=== PATIENT | female | born 1995 | race African-American/Black ===

== ENCOUNTER 2017-10-07 21:25 | Emergency (ER) | payer BC, OTHER ==
[2017-10-07 21:32] VITALS: BMI 38.4
[2017-10-07] MEDS ORDERED: TORADOL 30 MG VIAL IVP ONE (21:59)
[2017-10-07] MEDS ORDERED: NS 1000 ML 1,000 ML IV ONE (21:59)
--- NOTE | 2017-10-07 22:01 | DR.GENAD ---
HPI - PCP Primary Care Physician: APARNA Calderon HPI Comment HPI Comment: GETTING WORSE. - Complaint/Symptoms Chief Complaint Doctors Comments: FEVER, CHILLS BACK AND FLANK PAIN TIMES 2 DAYS Chief Complaint:: BACK HURTS , SHAKES HEAD HURTING Self Treatment fo Chief Complaint: 3 TYLENOL 500 1600 - Nurses notes reviewed Nurses Notes Review: Yes - Source History Provided: Patient - Mode of Arrival Mode of Arrival: Ambulatory - Timing Onset of Chief Complaint: 10/04/17 Came on: Suddenly - Duration Duration: Constant Duration: Days - Severity Severity: Moderate PMH - PMH Past Medical History: No Past Surgical History: No - Family History History of Family Medical Conditions: Yes Family Medical History: Diabetes Mellitus, Cancer, [place], Coronary Artery Disease, Hypertension - Social History Does patient currently use any type of tobacco product: No Have you used tobacco products in the last 12 months: No Type of Tobacco Use: None Does any household member use tobacco: No Alcohol Use: None Do you use any recreational Drugs:: No Lives With: Family Lives Where: Home - infectious screening In the last 2 months have you had wt loss of >10#?: NO Have you had fever, night sweats or hemotysis?: No Have you traveled outside the country in the last 6 months?: No Isolation: Standard ROS - Review of Systems Constitutional: Chills, Fever, Weakness, Fatigue Eyes: No Symptoms Reported. negative: Eye Pain, Discharge ENTM: No Symptoms Reported. negative: Ear Pain, Nose Discharge, Nose Congestion , Throat Pain Respiratoy: No Symptoms Reported Cardiovascular: No Symptoms Reported Gastrointestinal/Abdominal: Abdominal Pain Genitourinary: No Symptoms Reported, Other (FLANK PAIN BILATERAL) Neurological: Weakness Musculoskeletal: Back Pain, Muscle Pain, Other (FLANK PAIN) Integumentary: No Symptoms Reported Hematologic/Lymphatic: No Symptoms Reported Endocrine: No Symptoms Reported All Other Systems: Reviewed and Negative PE - Vital Signs Vitals: Temperature 103.6 F Pulse Rate [Left Brachial] 100 Pulse Rate 127 Respiratory Rate 18 Blood Pressure [Right Arm] 136/87 Blood Pressure [Left Arm] 101/56 Blood Pressure 131/71 O2 Sat by Pulse Oximetry 100 - General Limitations: No Limitations General Appearance: Alert - Head Head Exam: Normal Inspection - Eyes Eye exam: Normal Appearance - ENT ENT Exam: Normal External Ear Exam External Ear Exam: Normal External Inspection TM/Canal Exam: Bilateral Normal Nose Exam: Normal Nose Exam Mouth Exam: Normal Inspection Throat Exam: Normal Inspection - Neck Neck Exam: Normal Inspection - Chest Chest Inspection: Symmetric Chest Wall Rise - Respiratory Respiratory Exam: Normal Lung Sounds Bilat Respiratory Exam: Bilateral Clear to Auscultation - Cardiovascular Cardiovascular Exam: Regular Rate, Normal Rhythm, Normal Heart Sounds - Abdominal Exam Abdominal Exam: Normal Bowel Sounds, Soft, Tenderness Abdominal Tenderness: RLQ, LLQ, Suprapubic - Extremities Extremities Exam: Normal Inspection - Back Back Exam: (R) CVA Tenderness, (L) CVA Tenderness - Neurologic Neurological Exam: Alert, Oriented X3 - Psychiatric Psychiatric Exam: Normal Affect, Normal Mood - Skin Skin Exam: Normal Color MDM - Additional Information Additional Information Obtained From: Family - Differential Diagnosis Differential Diagnosis: FLANK PAIN, BACK PAIN, KIDNEY STONE, UTI Course - Treatment Treatment: SEE ORDERS. IV NS AND IV ROCEPHIN IN ED. - Reevaluation 1st: Improved - Education/Counseling Education/Counseling: Patient, Family, Education Educated On: Treatment, Diagnosis, Needs for Follow Up ROR - Labs Reviewed Laboratory Results Reviewed?: Yes Result Diagrams: 10/07/17 22:15 10/07/17 22:15 Laboratory: WBC 10.4 X10^3/uL (3.6-10.0) H 10/07/17 22:15 RBC 4.08 X10^6/uL (3.5-5.4) 10/07/17 22:15 Hgb 12.9 g/dL (12.0-16.0) 10/07/17 22:15 Hct 36.6 % (36.0-47.0) 10/07/17 22:15 MCV 89.8 fL (80.0-100.0) 10/07/17 22:15 MCH 31.6 pg (27.0-34.0) 10/07/17 22:15 MCHC 35.2 g/dL (33.0-35.0) H 10/07/17 22:15 RDW 12.9 % (11.6-16.5) 10/07/17 22:15 Plt Count 228 X10^3/uL (150.0-450.0) 10/07/17 22:15 MPV 8.4 fL (7.4-11.0) 10/07/17 22:15 Neut % (Auto) 84.2 % (42.0-75.0) H 10/07/17 22:15 Lymph % (Auto) 11.5 % (21.0-51.0) L 10/07/17 22:15 [place] % (Auto) 3.8 % (0.0-13.0) 10/07/17 22:15 Eos % (Auto) 0.1 % (0.9-2.9) L 10/07/17 22:15 Baso % (Auto) 0.4 % (0.2-1.0) 10/07/17 22:15 Neut # (Auto) 8.8 x10^3/uL (2.2-4.8) H 10/07/17 22:15 Lymph # (Auto) 1.2 X10^3/uL (1.3-2.9) L 10/07/17 22:15 [place] # (Auto) 0.4 x10^3/uL (0.3-0.8) 10/07/17 22:15 Eos # (Auto) 0.0 x10^3/uL (0.0-0.2) 10/07/17 22:15 Baso # (Auto) 0.0 X10^3/uL (0.0-0.1) 10/07/17 22:15 Absolute Nucleated RBC 0.0 /100WBC 10/07/17 22:15 Sodium 140 mmol/L (136-145) 10/07/17 22:15 Corrected Sodium TNP 10/07/17 22:15 Potassium 3.5 mmol/L (3.5-5.1) 10/07/17 22:15 Chloride 105 mmol/L (98-107) 10/07/17 22:15 Carbon Dioxide 27.3 mmol/L (21-32) 10/07/17 22:15 BUN 13 mg/dL (7-18) 10/07/17 22:15 Creatinine 1.05 mg/dL (0.55-1.02) H 10/07/17 22:15 Est GFR (MDRD) Af Amer > 60 (>60) 10/07/17 22:15 Est GFR (MDRD) Non-Af > 60 (>60) 10/07/17 22:15 Glucose 110 mg/dL (65-99) H 10/07/17 22:15 Lactic Acid 0.9 mmol/L (0.4-2.0) 10/07/17 22:15 Calcium 8.3 mg/dL (8.5-10.1) L 10/07/17 22:15 Corrected Calcium TNP 10/07/17 22:15 Total Bilirubin 2.20 mg/dL (0.2-1.0) H 10/07/17 22:15 AST 14 Units/L (15-37) L 10/07/17 22:15 ALT 17 Units/L (12-78) 10/07/17 22:15 Alkaline Phosphatase 111 Units/L (46-116) 10/07/17 22:15 Total Protein 8.1 g/dL (6.4-8.2) 10/07/17 22:15 Albumin 3.6 g/dL (3.4-5.0) 10/07/17 22:15 Globulin 4.5 g/dL (2.5-4.5) 10/07/17 22:15 Albumin/Globulin Ratio 0.8 Ratio (1.1-2.1) L 10/07/17 22:15 Specimen Type Clean catch urine 10/07/17 22:14 Urine Color [place] (YELLOW) 10/07/17 22:14 Urine Appearance Cloudy (CLEAR) 10/07/17 22:14 Urine pH 6.5 (5.0 - 8.0) 10/07/17 22:14 Ur Specific [place] 1.020 (1.000-1.030) 10/07/17 22:14 Urine Protein 3+ (NEGATIVE) 10/07/17 22:14 Urine Glucose (UA) Negative (NEGATIVE) 10/07/17 22:14 Urine Ketones Negative (NEGATIVE) 10/07/17 22:14 Urine Occult Blood 2+ (NEGATIVE) 10/07/17 22:14 Urine Nitrite Positive (NEGATIVE) 10/07/17 22:14 Urine Bilirubin Negative (NEGATIVE) 10/07/17 22:14 Urine Urobilinogen 2+ (NORMAL) 10/07/17 22:14 Ur Leukocyte Esterase 3+ (NEGATIVE) 10/07/17 22:14 Urine RBC 12-15 /HPF (NONE SEEN) 10/07/17 22:14 Urine WBC Tntc /HPF (NONE SEEN) 10/07/17 22:14 Ur Squamous Epith Cells Rare /HPF (NEGATIVE) 10/07/17 22:14 Urine Bacteria 3+ /HPF (NEGATIVE) 10/07/17 22:14 Ur Culture Indicated? Yes/culture set up 10/07/17 22:14 - XRAY XRAY Interpreted by: Radiologist XRAY Findings: REPORT DISCUSS WITH PATIENT. - Diagnosis Discharge Problem: Flank pain UTI (urinary tract infection) Qualifiers: Urinary tract infection type: site unspecified Hematuria presence: with hematuria Qualified Code(s): N39.0 - Urinary tract infection, site not specified Back pain Qualifiers: Back pain location: low back pain Chronicity: acute Back pain laterality: bilateral Sciatica presence: without sciatica Qualified Code(s): M54.5 - Low back pain - Discharge Plan Disposition: 01 HOME, SELF-CARE Condition: Stable Prescriptions: Ibuprofen [MOTRIN TAB 600 MG *] 600 mg PO TID PRN #20 tab PRN Reason: Pain/Inflammation Sulfamethoxazole-Trimethoprim [BACTRIM DS TAB 800/160 MG *] 1 tab PO Q8H #30 tab - Follow ups/Referrals Follow ups/Referrals: TODD BRAUN [Primary Care Provider] - 3 days - Instructions Instructions: Urinary Tract Infection, Adult, [id number], Flank Pain, Adult, [id number], Acute Pain, Adult Additional Instructions: RETURN TO ED IF WORSE.
[2017-10-07] MEDS ORDERED: TORADOL 30 MG VIAL ONE (22:05)
[2017-10-07] MEDS ORDERED: NS 1000 ML 1,000 ML ONE (22:05)
[2017-10-07 22:27] LABS: BASOPHILS % (AUTO) 0.4 % (0.2-1.0); EOSINOPHILS % (AUTO) 0.1 % (0.9-2.9); HEMATOCRIT 36.6 % (36.0-47.0); HEMOGLOBIN 12.9 g/dL (12.0-16.0); LYMPHOCYTES # (AUTO) 1.2 X10^3/uL (1.3-2.9); LYMPHOCYTES % (AUTO) 11.5 % (21.0-51.0); MEAN CORPUSCULAR HEMOGLOBIN 31.6 pg (27.0-34.0); MEAN CORPUSCULAR HGB CONC 35.2 g/dL (33.0-35.0); MEAN CORPUSCULAR VOLUME 89.8 fL (80.0-100.0); MEAN PLATELET VOLUME 8.4 fL (7.4-11.0); MONOCYTES # (AUTO) 0.4 x10^3/uL (0.3-0.8); MONOCYTES % (AUTO) 3.8 % (0.0-13.0); NEUTROPHILS # (AUTO) 8.8 x10^3/uL (2.2-4.8); NEUTROPHILS % (AUTO) 84.2 % (42.0-75.0); PLATELET COUNT 228 X10^3/uL (150.0-450.0); RED BLOOD COUNT 4.08 X10^6/uL (3.5-5.4); RED CELL DISTRIBUTION WIDTH 12.9 % (11.6-16.5); WHITE BLOOD COUNT 10.4 X10^3/uL (3.6-10.0)
[2017-10-07 22:34] LABS: BILIRUBIN,URINE NEGATIVE (NEGATIVE); BLOOD/HEMOGLOBIN,URINE 2+ (NEGATIVE); GLUCOSE, URINE NEGATIVE (NEGATIVE); KETONES,URINE NEGATIVE (NEGATIVE); LEUKOCYTE ESTERASE ,URINE 3+ (NEGATIVE); NITRITES,URINE POSITIVE (NEGATIVE); PH,URINE 6.5 (5.0 - 8.0); PROTEIN,URINE 3+ (NEGATIVE); UROBILINOGEN,URINE 2+ (NORMAL)
[2017-10-07 22:35] LABS: ALANINE AMINOTRANSFERASE 17 Units/L (12-78); ALBUMIN 3.6 g/dL (3.4-5.0); ALKALINE PHOSPHATASE 111 Units/L (46-116); ASPARTATE AMINO TRANSFERASE 14 Units/L (15-37); BLOOD UREA NITROGEN 13 mg/dL (7-18); CALCIUM 8.3 mg/dL (8.5-10.1); CARBON DIOXIDE 27.3 mmol/L (21-32); CHLORIDE 105 mmol/L (98-107); CREATININE 1.05 mg/dL (0.55-1.02); SODIUM 140 mmol/L (136-145); TOTAL PROTEIN 8.1 g/dL (6.4-8.2); eGFR BLACK RACES > 60 (>60); eGFR NON BLACK RACES > 60 (>60)
[2017-10-07 22:39] LABS: APPEARANCE,URINE CLOUDY (CLEAR); COLOR,URINE ORANGE (YELLOW)
[2017-10-07 22:40] LABS: BACTERIA,URINE 3+ /HPF (NEGATIVE); SQUAMOUS EPITHELIAL CELL,UR RARE /HPF (NEGATIVE)
[2017-10-07 22:46] LABS: LACTIC ACID 0.9 mmol/L (0.4-2.0)
--- NOTE | 2017-10-07 22:46 | CT ---
CT abdomen and pelvis without contrast Indication: Lower back and right flank pain. Comparison: None Technique: CT images of the abdomen and pelvis were obtained without contrast. Automatic exposure con trol was utilized. Findings: No aggressive osseous lesions or acute skeletal abnormality. The lung bases are clear. There are small layering gallstones, without gallbladder distention or pericholecystic inflammation. Within the limitations of a noncontrast study, the liver, spleen, stomach, duodenum, pancreas, adrena ls, and kidneys are unremarkable. Specifically, there is no nephrolithiasis or hydronephrosis. No ure teral stone identified. No marked thickening or dilatation of the lower GI tract. Normal appendix. The uterus and ovaries are noted, with grossly unremarkable positioning of an IUD. The urinary bladder and rectum are unremarka ble. No significant free fluid or adenopathy. Impression: No etiology for patient's symptoms identified. Specifically, no urinary stone or urinary obstruction. Cholelithiasis. Reported By:
[2017-10-07] MEDS ORDERED: ROCEPHIN 1 GM IV PREMIX 1 GM/50 ML IV.SOLN. IV ONE ×2 (23:00→23:03)
[2017-10-08 00:09] VITALS: BP 101/56
== END 2017-10-08 00:08 | disposition home or self-care (01) ==
LOC: ER 21:38
DX: N39.0 Urinary tract infection, site not specified (principal); R10.84 Generalized abdominal pain; K80.20 Calculus of gallbladder without cholecystitis without obstruction; B96.29 Other Escherichia coli [E. coli] as the cause of diseases classified elsewhere
CPT/HCPCS: 36415; 74176; 80053; 81001; 83605; 85025; 87040; 87077; 87086; 87088; 87186; 96365; 96367; 96374; 96375; 99283; 99285; A4222; J0696; J1885